=== PATIENT | male | born 1990 | race African-American/Black ===

== ENCOUNTER 2022-01-15 11:39 | Emergency (ER) | payer MEDICAID ==
[~2022-01-15] VITALS: Ht 165.1 cm; Wt 77.0 kg
[2022-01-15] MEDS ORDERED: ACETAMINOPHEN WITH CODEINE 300/30MG TABLET PO ONE (13:15)
[2022-01-15 13:56] VITALS: BP 124/92
[2022-01-15] MEDS ORDERED: IBUP-2029 MT (14:41)
== END 2022-01-15 15:01 | disposition home or self-care (01) ==
LOC: ER 11:39
DX: S09.8XXA Other specified injuries of head, initial encounter (principal); W01.198A Fall on same level from slipping, tripping and stumbling with subsequent striking against other object, initial encounter; Y93.89 Activity, other specified; Y92.511 Restaurant or cafe as the place of occurrence of the external cause
CPT/HCPCS: 99282